=== PATIENT | male | born 1980 | race Caucasian/White ===

== ENCOUNTER 2016-10-25 21:27 | Emergency (ER) | payer BC, OTHER ==
[2016-10-25 21:27] VITALS: BMI 22.0
[2016-10-26 01:06] VITALS: BP 104/63; PULSE 64; RESP 16; TEMP 98; O2SAT 97
== END 2016-10-26 01:06 | disposition home or self-care (01) ==
LOC: C.ER 21:27
DX: R10.9 Unspecified abdominal pain (principal)
CPT/HCPCS: 74177; 80053; 81001; 83690; 85025; 85610; 85730; 96361; 96374; 96375; 99285; J1885; J2405; J7040; Q9967